=== PATIENT | female | born 1995 | race Caucasian/White ===

== ENCOUNTER → 2022-10-24 | Outpatient (CLI) | payer BC ==
--- NOTE | 2022-10-24 20:55 | Diagnostic Imaging Report ---
INDICATION: patient, survey. TECHNIQUE: Multiple real-time grayscale images were obtained over the gravid uterus. COMPARISON: None FINDINGS: A single live intrauterine fetus is seen measuring 21 weeks 5 days by composite measurements. Fetus is in cephalic presentation. Amniotic fluid index is normal at 17.55 cm. Placenta is posterior with no evidence of previa. heart rate is 155 bpm. The cervical length 3.9 cm. Distance from the placental tip to the internal os was 6.8 cm. Gestational sac normal-appearing shape. survey showed normal-appearing kidneys and bladder. Normal-appearing stomach was seen. Intracranial ventricles appear normal. Four-chamber heart view appeared normal. Three-vessel cord and cord insertion appear unremarkable. Views of the spine were normal. Biometrical measurements are as follows: Biparietal 5.49 cm, age 22 weeks 6 days. Head circumference 19.76 cm, age 22 weeks 0 days. Abdominal circumference 16.00 cm, age 21 weeks 1 days. Femur length 3.42 cm, age 20 weeks 6 days. Sonographic estimate age: 21 weeks 5 days. Sonographic estimated date of delivery: 03/01/2023. Estimated Weight: 400 gm (+/- 58 gm). LMP percentile: 51%. heart rate: 155 beats per minute. number: 1 of 1. IMPRESSION: Single live intrauterine fetus measuring 21 weeks 5 days in size. There was no detectable abnormality. Dictated by: Dictated on workstation # [id number]
== END ==
LOC: RAD 09:29
PROVIDERS: ATTEND Obstetrics & Gynecology
DX: Z36.89 Encounter for other specified antenatal screening (principal); Z3A.21 21 weeks gestation of pregnancy
CPT/HCPCS: 76805